=== PATIENT | female | born 1945 | race Caucasian/White ===

== ENCOUNTER 2020-09-18 20:15 | Emergency (ER) | payer MEDICARE, BC ==
--- NOTE | 2020-09-18 21:28 | EDM.PDOC ---
ED HPI GENERAL MEDICAL PROBLEM - General Chief Complaint: Cardiovascular Problem Stated Complaint: RAPID HEART BEAT Time Seen by Provider: 09/18/20 20:38 Source of Information: Reports: Patient History Limitations: Reports: No Limitations - History of Present Illness INITIAL COMMENTS - FREE TEXT/NARRATIVE: Erlinda is a 75-year-old female presenting to the ED for evaluation of acute onset of tachycardia. Patient reports that she ate a hamburger and butter beans for supper and shortly thereafter had acute onset of rapid heartbeat. Her initial pulse was 129. She tried to rest and relax and her pulse still remained above 100. She became lightheaded and slightly dizzy and decided it was time to come in to be evaluated. She does have a history of a partial thyroidectomy due to a goiter and a cervical spine fusion. The patient is currently on metoprolol, Crestor, Metformin, baby aspirin, and a multitude of vitamins. She denied any chest pain, shortness of breath, nausea or vomiting, diaphoresis, or back pain. She does have a history of hip pain secondary to osteoarthritis and did taking 100 mg of ibuprofen this morning. She does have a history of a cervical fusion for chronic neck pain many years ago. She also has a history of bilateral hand and wrist arthritis. On arrival to the ED she was asymptomatic and her pulse was in the 70s. denies pain Pain Score (Numeric/FACES): 0 - Related Data Allergies Allergy/AdvReac Type Severity Reaction Status Date / Time No Known Allergies Allergy Verified 09/18/20 20:57 Home Meds: Home Meds Aspirin [Halfprin] 81 mg PO BEDTIME 12/19/19 [History] Cholecalciferol (Vitamin D3) [Vitamin D3] 2,000 unit PO BID 12/19/19 [History] Metoprolol Succinate 25 mg PO BID 12/19/19 [History] [place]-3S/DHA/Epa/Fish Oil [Fish Oil [place]-3 Softgel] 1 tab PO DAILY 12/19/19 [History] Rosuvastatin [Crestor] 5 mg PO BEDTIME 12/19/19 [History] Ubidecarenone [Co Q-10] 10 mg PO BEDTIME 12/19/19 [History] metFORMIN [Glucophage] 1,000 mg PO BIDMEALS 12/19/19 [History] Past Medical History HEENT History: Reports: Cataract, Impaired Vision, Other (See Below) Other HEENT History: glasses Cardiovascular History: Reports: High Cholesterol, Hypertension Gastrointestinal History: Reports: Chronic Diarrhea 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 Musculoskeletal History: Reports: Arthritis Endocrine/Metabolic History: Reports: Diabetes, Type II - Past Surgical History HEENT Surgical History: Reports: Cataract Surgery GI Surgical History: Reports: Appendectomy, Cholecystectomy Female Surgical History: Reports: Oophorectomy Endocrine Surgical History: Reports: Parathyroidectomy Neurological Surgical History: Reports: Spinal Fusion Musculoskeletal Surgical History: Reports: Hip Replacement, Knee Replacement Social & Family History - Tobacco Use Tobacco Use Status *Q: Never Tobacco User - Caffeine Use Caffeine Use: Reports: Coffee - Recreational Drug Use Recreational Drug Use: No ED ROS GENERAL - Review of Systems Review Of Systems: See Below Constitutional: Reports: No Symptoms HEENT: Reports: No Symptoms Respiratory: Reports: No Symptoms Cardiovascular: Reports: Lightheadedness, Palpitations (Tachycardia) Endocrine: Reports: No Symptoms GI/Abdominal: Reports: No Symptoms : Reports: No Symptoms Musculoskeletal: Reports: Other (Left hip pain) Skin: Reports: No Symptoms Neurological: Reports: No Symptoms Psychiatric: Reports: No Symptoms Hematologic/Lymphatic: Reports: No Symptoms Immunologic: Reports: No Symptoms ED EXAM, GENERAL - Physical Exam Exam: See Below Exam Limited By: No Limitations General Appearance: Alert, No Apparent Distress Eye Exam: Bilateral Eye: EOMI, PERRL Head: Atraumatic, Normocephalic Neck: Normal Inspection, Supple, Non-Tender, Full Range of Motion. No: Carotid Bruit, Lymphadenopathy (R), Lymphadenopathy (L) Respiratory/Chest: No Respiratory Distress, Lungs Clear, Normal Breath Sounds, No Accessory Muscle Use Cardiovascular: Normal Peripheral Pulses, Regular Rate, Rhythm, No Murmur Peripheral Pulses: 2+: Radial (L), Radial (R), Posterior Tibial (L), Posterior Tibial (R) GI/Abdominal: Normal Bowel Sounds, Soft, Non-Tender Back Exam: Normal Inspection Extremities: Normal Inspection, No Pedal Edema Neurological: Alert, Oriented, Normal Cognition, No Motor/Sensory Deficits Psychiatric: Normal Affect, Normal Mood Skin Exam: Warm, Dry, Intact, Normal Color Lymphatic: No Adenopathy #1 Interpretation EKG Date: 09/18/20 Time: 20:43 Rhythm: NSR Rate (Beats/Min): 64 [place]: Normal P-Wave: Present QRS: Normal ST-T: Normal QT: Normal Comparison: NA - No Prior EKG Course - Vital Signs Last Recorded V/S: Last Vital Signs Temp 36.5 C 09/18/20 20:54 Pulse 69 09/18/20 21:32 Resp 16 09/18/20 20:54 BP 137/68 09/18/20 21:32 Pulse Ox 97 09/18/20 21:32 - Orders/Labs/Meds Orders: Active Orders 24 hr Category Date Time Status EKG Documentation Completion [RC] ASDIRECTED Care 09/18/20 20:39 Active EKG 12 Lead [EK] Routine Ther 09/18/20 20:38 Ordered Labs: Laboratory Tests 09/18/20 09/18/20 Range/Units 20:52 20:52 WBC 8.5 (4.5-11.0) K/uL RBC 4.38 (3.30-5.50) M/uL Hgb 13.6 (12.0-15.0) g/dL Hct 40.5 (36.0-48.0) % MCV 93 (80-98) fL MCH 31 (27-31) pg MCHC 34 (32-36) % Plt Count 262 (150-400) K/uL Neut % (Auto) 55.2 (36-66) % Lymph % (Auto) 33.0 (24-44) % Delta % (Auto) 8.5 H (2-6) % Eos % (Auto) 2.9 (2-4) % Baso % (Auto) 0.4 (0-1) % Sodium 140 (140-148) mmol/L Potassium 4.3 (3.6-5.2) mmol/L Chloride 102 (100-108) mmol/L Carbon Dioxide 26 (21-32) mmol/L Anion Gap 12.2 (5.0-14.0) mmol/L BUN 25 H (7-18) mg/dL Creatinine 1.1 H (0.6-1.0) mg/dL Est Cr Clr Drug Dosing 40.09 mL/min Estimated GFR (MDRD) 48 L (>60) Glucose 180 H (74-106) mg/dL Calcium 8.9 (8.5-10.1) mg/dL Magnesium 1.2 L (1.8-2.4) mg/dL Total Bilirubin 0.5 (0.2-1.0) mg/dL AST 12 L (15-37) U/L ALT 30 (12-78) U/L Alkaline Phosphatase 63 (46-116) U/L Troponin I < 0.017 (0.000-0.056) ng/mL Total Protein 6.4 (6.4-8.2) g/dL Albumin 3.6 (3.4-5.0) g/dL Globulin 2.8 (2.3-3.5) g/dL Albumin/Globulin Ratio 1.3 (1.2-2.2) TSH, Ultra Sensitive 3.314 (0.358-3.740) uIU/mL Meds: Medications Discontinued Medications Generic Name Dose Route Start Last Admin Trade Name Guerrero PRN Reason Stop Dose Admin Magnesium Oxide 800 mg 09/18/20 22:29 Magnesium Oxide 400 Mg Tab PO 09/18/20 22:30 ONETIME ONE - Re-Assessments/Exams Free Text/Narrative Re-Assessment/Exam: 09/18/20 22:34 reviewed the patient's EKG showing normal sinus rhythm without evidence for any ischemia or injury. I reviewed her labs showing a normal CBC with a hemoglobin of 13.6, hematocrit of 40.5, leukocyte count of 8.5, and a platelet count of 262,000. Her comprehensive metabolic panel is significant for a BUN of 25 and a creatinine of 1.1. The remainder of the comprehensive was unremarkable. Her magnesium is very low at 1.2 so she was supplemented with mag oxide 800 mg p.o. Her troponin is negative at less than 0.017 and her TSH is normal at 3.314. She has not had any episodes of tachycardia since being here. It is unclear what the etiology is, however, we will discharge her with instructions to return if she has any recurrence. Patient's in agreement with this plan. All questions were answered prior to discharge. Departure - Departure Time of Disposition: 22:36 Disposition: Home, Self-Care 01 Clinical Impression: Paroxysmal tachycardia, unspecified, Hypomagnesemia Instructions: Sinus Tachycardia, Hypomagnesemia Referrals: Leia Cummins MD [Primary Care Provider] - Forms: ED Department Discharge Care Plan Goals: Your work-up today was unremarkable except that you were somewhat dehydrated and you have a very low magnesium level. The magnesium could have been the orchestrate or of the tachycardia. There does not appear to be any other worrisome findings in your work-up. Hopefully the magnesium oxide that we gave you will bring you back up to normal level. Return to the ED should you have another episode of the tachycardia. If this becomes a recurrence we may put you on an event monitor which can record what the tachycardia electrical pattern is to better define it. Follow-up with your primary care provider as needed. Sepsis Event Note (ED) - Evaluation Sepsis Screening Result: No Definite Risk - Focused Exam Vital Signs: Vital Signs Temp Pulse Resp BP Pulse Ox 09/18/20 21:32 69 137/68 97 09/18/20 20:54 36.5 C 71 16 178/75 H 93 L 09/18/20 20:37 36.5 C 71 16 178/75 H 93 L - Problem List & Annotations (1) Hypomagnesemia SNOMED Code(s): 308043001 Code(s): E83.42 - HYPOMAGNESEMIA Status: Acute Priority: Medium Current Visit: Yes (2) Paroxysmal tachycardia, unspecified SNOMED Code(s): 54618738 Code(s): I47.9 - PAROXYSMAL TACHYCARDIA, UNSPECIFIED Status: Acute Priority: High Current Visit: Yes - Problem List Review Problem List Initiated/Reviewed/Updated: Yes - My Orders Last 24 Hours: My Active Orders 09/18/20 20:38 EKG 12 Lead [EK] Routine 09/18/20 20:39 EKG Documentation Completion [RC] ASDIRECTED - Assessment/Plan Last 24 Hours: My Active Orders 09/18/20 20:38 EKG 12 Lead [EK] Routine 09/18/20 20:39 EKG Documentation Completion [RC] ASDIRECTED
[2020-09-18] MEDS ORDERED: Magnesium Oxide 400 MG Tab PO ONE (22:29)
== END 2020-09-18 22:58 | disposition home or self-care (01) ==
LOC: JP.ED 20:15
DX: R00.0 Tachycardia, unspecified (principal); E83.42 Hypomagnesemia; E11.9 Type 2 diabetes mellitus without complications; E78.00 Pure hypercholesterolemia, unspecified; I10 Essential (primary) hypertension; Z79.82 Long term (current) use of aspirin; Z79.899 Other long term (current) drug therapy; Z79.84 Long term (current) use of oral hypoglycemic drugs
CPT/HCPCS: 36415; 80053; 83735; 84443; 84484; 85025; 93005; 93010; 99283; 99285-25; A9270-GY

== ENCOUNTER 2021-02-11 07:34 | Emergency (ER) | payer MEDICARE, BC ==
--- NOTE | 2021-02-11 09:51 | EDM.PDOC ---
ED HPI GENERAL MEDICAL PROBLEM - General Chief Complaint: Cardiovascular Problem Stated Complaint: SOB Time Seen by Provider: 02/11/21 09:50 Source of Information: Reports: Patient History Limitations: Reports: No Limitations - History of Present Illness INITIAL COMMENTS - FREE TEXT/NARRATIVE: pt arrived stating that she was awaken in the misddle of the nite feeling very sob and like her heart was racing. Onset: Today, Sudden Duration: Hour(s): Location: Reports: Chest, Generalized Associated Symptoms: Reports: Shortness of Breath, Weakness - Related Data Allergies Allergy/AdvReac Type Severity Reaction Status Date / Time No Known Allergies Allergy Verified 02/13/21 08:51 Home Meds: Home Meds Aspirin [Halfprin] 81 mg PO BEDTIME 12/19/19 [History] Cholecalciferol (Vitamin D3) [Vitamin D3] 2,000 unit PO BID 12/19/19 [History] [place]-3S/DHA/Epa/Fish Oil [Fish Oil [place]-3 Softgel] 1 tab PO DAILY 12/19/19 [History] Rosuvastatin [Crestor] 5 mg PO BEDTIME 12/19/19 [History] Ubidecarenone [Co Q-10] 10 mg PO BEDTIME 12/19/19 [History] metFORMIN [Glucophage] 1,000 mg PO BIDMEALS 12/19/19 [History] Magnesium 400 mg PO BID 02/11/21 [History] Potassium Gluconate [Potassium] 2 tab PO DAILY 02/11/21 [History] carvediloL [Carvedilol] 6.25 mg PO BID 02/11/21 [History] Past Medical History HEENT History: Reports: Cataract, Impaired Vision, Other (See Below) Other HEENT History: glasses Cardiovascular History: Reports: High Cholesterol, Hypertension Gastrointestinal History: Reports: Chronic Diarrhea 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 Musculoskeletal History: Reports: Arthritis Endocrine/Metabolic History: Reports: Diabetes, Type II - Infectious Disease History Infectious Disease History: Reports: Chicken Pox, Measles, Mumps, Shingles - Past Surgical History HEENT Surgical History: Reports: Cataract Surgery GI Surgical History: Reports: Appendectomy, Cholecystectomy Female Surgical History: Reports: Oophorectomy Endocrine Surgical History: Reports: Parathyroidectomy Musculoskeletal Surgical History: Reports: Hip Replacement, Knee Replacement Social & Family History - Tobacco Use Tobacco Use Status *Q: Never Tobacco User - Caffeine Use Caffeine Use: Reports: None - Recreational Drug Use Recreational Drug Use: No ED ROS GENERAL - Review of Systems Review Of Systems: See Below Constitutional: Reports: Weakness, Other (sensation of a rapid heartbeat and feeling very sob. ) HEENT: Reports: No Symptoms Respiratory: Reports: Shortness of Breath Cardiovascular: Reports: Palpitations Endocrine: Reports: No Symptoms GI/Abdominal: Reports: No Symptoms : Reports: No Symptoms Musculoskeletal: Reports: No Symptoms Skin: Reports: No Symptoms Neurological: Reports: No Symptoms Psychiatric: Reports: Anxiety ED EXAM, GENERAL - Physical Exam Exam: See Below Free Text/Narrative:: pt arrived feeling sob. She had difficulty resting last nite because of the sob. She has not had chest pain. She is scheduled for a chemical cardiac stress test for tuesday. She did have the sensation of palpitations last nite. Exam Limited By: No Limitations General Appearance: Alert, No Apparent Distress, Anxious, Other (pt has o2 sats in the 95 range. She has not had a fever. ) Ears: Normal TMs Nose: Normal Inspection Throat/Mouth: Normal Inspection Head: Atraumatic Neck: Normal Inspection Respiratory/Chest: No Respiratory Distress, Other ( she has the sensation of sob but she has sats in the 95 range. ) Cardiovascular: Regular Rate, Rhythm GI/Abdominal: Soft, Non-Tender (Female) Exam: Deferred Rectal (Female) Exam: Deferred Back Exam: Normal Inspection Extremities: Other ( She does have slight edema but this is not different than usual. ) Course - Vital Signs Last Recorded V/S: Last Vital Signs Temp 36.6 C 02/11/21 08:52 Pulse 72 02/11/21 10:03 Resp 17 02/11/21 10:03 BP 169/80 H 02/11/21 10:03 Pulse Ox 95 02/11/21 10:03 - Orders/Labs/Meds Labs: Laboratory Tests 02/11/21 02/11/21 02/11/21 Range/Units 09:44 09:44 10:22 WBC 7.9 (4.5-11.0) K/uL RBC 4.43 (3.30-5.50) M/uL Hgb 13.3 (12.0-15.0) g/dL Hct 39.5 (36.0-48.0) % MCV 89 (80-98) fL MCH 30 (27-31) pg MCHC 34 (32-36) % Plt Count 308 (150-400) K/uL Neut % (Auto) 64.0 (36-66) % Lymph % (Auto) 26.2 (24-44) % [place] % (Auto) 7.0 H (2-6) % Eos % (Auto) 2.4 (2-4) % Baso % (Auto) 0.4 (0-1) % D-Dimer, Quantitative (0.0-500.0) ng/mL Sodium 143 (140-148) mmol/L Potassium 4.3 (3.6-5.2) mmol/L Chloride 107 (100-108) mmol/L Carbon Dioxide 27 (21-32) mmol/L Anion Gap 9.3 (5.0-14.0) mmol/L BUN 17 (7-18) mg/dL Creatinine 0.9 (0.6-1.0) mg/dL Est Cr Clr Drug Dosing TNP Estimated GFR (MDRD) > 60 (>60) Glucose 144 H (74-106) mg/dL Calcium 8.9 (8.5-10.1) mg/dL Magnesium (1.8-2.4) mg/dL Total Bilirubin 0.6 (0.2-1.0) mg/dL AST 15 (15-37) U/L ALT 24 (12-78) U/L Alkaline Phosphatase 63 (46-116) U/L Troponin I < 0.017 (0.000-0.056) ng/mL NT-Pro-B Natriuret Pep (5-450) pg/mL Total Protein 6.7 (6.4-8.2) g/dL Albumin 3.8 (3.4-5.0) g/dL Globulin 2.9 (2.3-3.5) g/dL Albumin/Globulin Ratio 1.3 (1.2-2.2) TSH, Ultra Sensitive (0.358-3.740) uIU/mL 02/11/21 02/11/21 02/11/21 Range/Units 10:22 10:22 10:22 WBC (4.5-11.0) K/uL RBC (3.30-5.50) M/uL Hgb (12.0-15.0) g/dL Hct (36.0-48.0) % MCV (80-98) fL MCH (27-31) pg MCHC (32-36) % Plt Count (150-400) K/uL Neut % (Auto) (36-66) % Lymph % (Auto) (24-44) % [place] % (Auto) (2-6) % Eos % (Auto) (2-4) % Baso % (Auto) (0-1) % D-Dimer, Quantitative 564.66 H (0.0-500.0) ng/mL Sodium (140-148) mmol/L Potassium (3.6-5.2) mmol/L Chloride (100-108) mmol/L Carbon Dioxide (21-32) mmol/L Anion Gap (5.0-14.0) mmol/L BUN (7-18) mg/dL Creatinine (0.6-1.0) mg/dL Est Cr Clr Drug Dosing Estimated GFR (MDRD) (>60) Glucose (74-106) mg/dL Calcium (8.5-10.1) mg/dL Magnesium (1.8-2.4) mg/dL Total Bilirubin (0.2-1.0) mg/dL AST (15-37) U/L ALT (12-78) U/L Alkaline Phosphatase (46-116) U/L Troponin I (0.000-0.056) ng/mL NT-Pro-B Natriuret Pep 113 (5-450) pg/mL Total Protein (6.4-8.2) g/dL Albumin (3.4-5.0) g/dL Globulin (2.3-3.5) g/dL Albumin/Globulin Ratio (1.2-2.2) TSH, Ultra Sensitive 0.917 (0.358-3.740) uIU/mL 02/11/21 Range/Units 11:08 WBC (4.5-11.0) K/uL RBC (3.30-5.50) M/uL Hgb (12.0-15.0) g/dL Hct (36.0-48.0) % MCV (80-98) fL MCH (27-31) pg MCHC (32-36) % Plt Count (150-400) K/uL Neut % (Auto) (36-66) % Lymph % (Auto) (24-44) % [place] % (Auto) (2-6) % Eos % (Auto) (2-4) % Baso % (Auto) (0-1) % D-Dimer, Quantitative (0.0-500.0) ng/mL Sodium (140-148) mmol/L Potassium (3.6-5.2) mmol/L Chloride (100-108) mmol/L Carbon Dioxide (21-32) mmol/L Anion Gap (5.0-14.0) mmol/L BUN (7-18) mg/dL Creatinine (0.6-1.0) mg/dL Est Cr Clr Drug Dosing Estimated GFR (MDRD) (>60) Glucose (74-106) mg/dL Calcium (8.5-10.1) mg/dL Magnesium 1.7 L (1.8-2.4) mg/dL Total Bilirubin (0.2-1.0) mg/dL AST (15-37) U/L ALT (12-78) U/L Alkaline Phosphatase (46-116) U/L Troponin I (0.000-0.056) ng/mL NT-Pro-B Natriuret Pep (5-450) pg/mL Total Protein (6.4-8.2) g/dL Albumin (3.4-5.0) g/dL Globulin (2.3-3.5) g/dL Albumin/Globulin Ratio (1.2-2.2) TSH, Ultra Sensitive (0.358-3.740) uIU/mL - Re-Assessments/Exams Free Text/Narrative Re-Assessment/Exam: 02/11/21 11:21 tsh is normal, her other labs look good. Her trop is good. Her rhythm remains notmal Her chest xray shows chronic changes but no infiltrate of effusions. her ddimer is not sig. Departure - Departure Time of Disposition: 11:23 Disposition: Home, Self-Care 01 Condition: Fair Clinical Impression: SOB (shortness of breath) on exertion Instructions: Shortness of Breath, Adult, [id number] Referrals: John Jara PA-C [Primary Care Provider] - Forms: ED Department Discharge Care Plan Goals: tske a extra Mag 400mg tablet daily for the next 3 days. keep appt for Tuesday for the stress test, keep appt with john ju for Tuesday, rtc if symoomtoms should get worse. Sepsis Event Note (ED) - Evaluation Sepsis Screening Result: No Definite Risk
--- NOTE | 2021-02-11 11:04 | CRLCR ---
For Patients: As a result of the Century Cures Act, medical imaging exams and procedure reports are released immediately into your electronic medical record. You may view this report before your referring provider. If you have questions, please contact your health care provider. Indication: Shortness of breath palpitations Comparison: None available. Technique: PA and Lateral views chest Findings: There is hyperinflation and chronic interstitial change with minimal basilar atelectasis versus scar. There is no dense consolidation, effusion or pneumothorax. The cardiac silhouette is mildly prominent. The bony thorax is grossly intact. Impression: Hyperinflation and chronic interstitial change with basilar atelectasis versus scar. No dense consolidation. Dictated by Caden Lewis MD @ 02/11/2021 11:04:03 AM (Electronically Signed)
== END 2021-02-11 11:37 | disposition home or self-care (01) ==
LOC: JP.ED 07:34
DX: R06.02 Shortness of breath (principal); E78.00 Pure hypercholesterolemia, unspecified; I10 Essential (primary) hypertension; M19.90 Unspecified osteoarthritis, unspecified site; E11.9 Type 2 diabetes mellitus without complications; Z79.82 Long term (current) use of aspirin; Z79.84 Long term (current) use of oral hypoglycemic drugs; Z79.899 Other long term (current) drug therapy
CPT/HCPCS: 36415; 71046; 80053; 83735; 83880; 84443; 84484; 85025; 85379; 93005; 99285-25

== ENCOUNTER 2021-04-06 10:27 | Emergency (ER) | payer MEDICARE, BC ==
--- NOTE | 2021-04-06 11:17 | EDM.PDOC ---
ED HPI GENERAL MEDICAL PROBLEM - General Chief Complaint: Chest Pain Stated Complaint: SOB, HEART PALPITATIONS Time Seen by Provider: 04/06/21 10:48 Source of Information: Reports: Patient, Family History Limitations: Reports: No Limitations - History of Present Illness INITIAL COMMENTS - FREE TEXT/NARRATIVE: 76-year-old female with ongoing palpitations over the past several months, intermittent shortness of breath and chest pain that seems to have been under lying element of anxiety. In reviewing her records, she had a nuclear stress test just 2 months ago that was negative, EKGs have been normal, vitals have been normal. She had a Holter monitor that ended Tuesday of last week and she has not heard the results which she is very anxious about, she called the clinic this morning and has not heard back. She felt short of breath this morning so came in. She has intermittent pressure as well. She was placed on cardiac monitoring and shows a normal sinus rhythm of her rate 64, no ectopic beats, O2 sats 98 to 100% and blood pressure is fine. Duration: Chronic (Symptoms have been ongoing and chronic) Associated Symptoms: Reports: Chest Pain (Intermittent pressure and palpitations), Malaise, Shortness of Breath - Related Data Allergies Allergy/AdvReac Type Severity Reaction Status Date / Time No Known Allergies Allergy Verified 04/06/21 10:48 Home Meds: Home Meds Aspirin [Halfprin] 81 mg PO BEDTIME 12/19/19 [History] Cholecalciferol (Vitamin D3) [Vitamin D3] 2,000 unit PO BID 12/19/19 [History] [place]-3S/DHA/Epa/Fish Oil [Fish Oil [place]-3 Softgel] 1 tab PO DAILY 12/19/19 [History] Rosuvastatin [Crestor] 5 mg PO BEDTIME 12/19/19 [History] Ubidecarenone [Co Q-10] 10 mg PO BEDTIME 12/19/19 [History] metFORMIN [Glucophage] 1,000 mg PO BIDMEALS 12/19/19 [History] Magnesium 400 mg PO BID 02/11/21 [History] Potassium Gluconate [Potassium] 2 tab PO DAILY 02/11/21 [History] carvediloL [Carvedilol] 6.25 mg PO BID 02/11/21 [History] Past Medical History HEENT History: Reports: Cataract, Impaired Vision, Other (See Below) Other HEENT History: glasses Cardiovascular History: Reports: High Cholesterol, Hypertension Gastrointestinal History: Reports: Chronic Diarrhea [employer] History: Reports: Endometriosis Musculoskeletal History: Reports: Arthritis Endocrine/Metabolic History: Reports: Diabetes, Type II - Infectious Disease History Infectious Disease History: Reports: Chicken Pox, Measles, Mumps, Shingles - Past Surgical History HEENT Surgical History: Reports: Cataract Surgery GI Surgical History: Reports: Appendectomy, Cholecystectomy Female Surgical History: Reports: Oophorectomy Endocrine Surgical History: Reports: Parathyroidectomy Neurological Surgical History: Reports: Spinal Fusion Musculoskeletal Surgical History: Reports: Hip Replacement, Knee Replacement Social & Family History - Tobacco Use Tobacco Use Status *Q: Never Tobacco User Second Hand Smoke Exposure: No - Caffeine Use Caffeine Use: Reports: None - Recreational Drug Use Recreational Drug Use: No ED ROS GENERAL - Review of Systems Review Of Systems: See Below Constitutional: Denies: Fever, Chills HEENT: Denies: Throat Pain Respiratory: Reports: Shortness of Breath. Denies: Wheezing, Cough Cardiovascular: Reports: Chest Pain, Palpitations GI/Abdominal: Reports: No Symptoms Skin: Reports: No Symptoms Neurological: Reports: No Symptoms Psychiatric: Reports: Anxiety ED EXAM, GENERAL - Physical Exam Exam: See Below Exam Limited By: No Limitations General Appearance: Alert, No Apparent Distress, Anxious Eye Exam: Bilateral Eye: Normal Inspection Head: Atraumatic Respiratory/Chest: No Respiratory Distress, Lungs Clear Cardiovascular: Regular Rate, Rhythm. No: Extra Beats GI/Abdominal: Soft, Non-Tender Extremities: Normal Inspection. No: Pedal Edema Neurological: Alert, Oriented, No Motor/Sensory Deficits Psychiatric: Anxious Skin Exam: Warm, Dry #1 Interpretation EKG Date: 04/06/21 Rhythm: NSR Course - Vital Signs Last Recorded V/S: Last Vital Signs Temp 97.2 F 04/06/21 10:51 Pulse 66 04/06/21 10:51 Resp 20 04/06/21 10:51 BP 148/59 H 04/06/21 10:51 Pulse Ox 99 04/06/21 10:51 - Orders/Labs/Meds Orders: Active Orders 24 hr Category Date Time Status EKG 12 Lead [EK] Routine Ther 04/06/21 11:11 Ordered Labs: Laboratory Tests 04/06/21 04/06/21 Range/Units 11:22 11:22 WBC 6.3 (3.2-11.0) K/uL RBC 4.41 (3.77-5.24) M/uL Hgb 13.3 (11.2-15.5) Hct 39.5 (34.3-46.0) % MCV 89.6 (81.4-99.0) fL MCH 30.2 L (31.6-35.5) pg MCHC 33.7 (31.6-35.5) g/dL Plt Count 281 (130-375) K/uL Immature Gran % (Auto) 0.2 (0.0-0.7) % Neut % (Auto) 54.7 (40.0-78.1) % Lymph % (Auto) 30.9 (11.4-47.7) % [place] % (Auto) 8.0 (3.3-12.6) % Eos % (Auto) 5.4 (0.0-5.4) % Baso % (Auto) 0.8 (0.1-1.3) % Neut # (Auto) 3.44 (1.0-7.6) K/uL Lymph # (Auto) 1.94 (0.8-3.3) K/uL [place] # (Auto) 0.50 (0.20-0.90) K/uL Eos # (Auto) 0.34 (0.00-0.40) K/uL Baso # (Auto) 0.05 (0.00-0.10) K/uL Immature Gran # (Auto) 0.01 (0.00-0.23) K/uL Sodium 141 (140-148) mmol/L Potassium 4.5 (3.6-5.2) mmol/L Chloride 103 (100-108) mmol/L Carbon Dioxide 29 (21-32) mmol/L Anion Gap 8.8 (5.0-14.0) mmol/L BUN 15 (7-18) mg/dL Creatinine 0.9 (0.6-1.0) mg/dL Est Cr Clr Drug Dosing TNP Estimated GFR (MDRD) > 60 (>60) Glucose 154 H (74-106) mg/dL Calcium 9.3 (8.5-10.1) mg/dL Troponin I High Sens 6.6 (<=60.3) pg/mL - Re-Assessments/Exams Free Text/Narrative Re-Assessment/Exam: 04/06/21 11:17 EKG on arrival shows normal sinus rhythm. CBC BMP and troponin were obtained. 04/06/21 12:06 CBC and BMP were normal other than glucose at 154 however this is not a fasting glucose. Troponin was normal. Patient did start having some PVCs after she calmed down but they were asymptomatic. No further work-up needed at this time, she can follow-up with her primary provider to discuss her Holter monitor, possibly getting something to decrease PVCs and may be even a treatment for chronic anxiety. Departure - Departure Time of Disposition: 12:25 Disposition: Home, Self-Care 01 Clinical Impression: Palpitations, PVCs (premature ventricular contractions) - Discharge Information Instructions: Premature Ventricular Contraction Referrals: Elsa Jara PA-C [Primary Care Provider] - Forms: ED Department Discharge Care Plan Goals: Continue your current medications, see Elsa Jara at the soonest opportunity to discuss your Holter monitor results, and any further treatment that may be helpful for your palpitations and shortness of breath. Sepsis Event Note (ED) - Evaluation Sepsis Screening Result: No Definite Risk - Focused Exam Vital Signs: Vital Signs Temp Pulse Resp BP Pulse Ox 04/06/21 10:51 97.2 F 66 20 148/59 H 99 - My Orders Last 24 Hours: My Active Orders 04/06/21 11:11 EKG 12 Lead [EK] Routine - Assessment/Plan Last 24 Hours: My Active Orders 04/06/21 11:11 EKG 12 Lead [EK] Routine
== END 2021-04-06 12:25 | disposition home or self-care (01) ==
LOC: JP.ED 10:27
DX: I49.3 Ventricular premature depolarization (principal); E11.9 Type 2 diabetes mellitus without complications; E78.00 Pure hypercholesterolemia, unspecified; I10 Essential (primary) hypertension; Z79.84 Long term (current) use of oral hypoglycemic drugs; Z79.82 Long term (current) use of aspirin
CPT/HCPCS: 36415; 80048; 84484; 85025; 93010; 99284; 99285-25

== ENCOUNTER 2021-07-13 10:17 | Emergency (ER) | payer MEDICARE, BC ==
[2021-07-13] MEDS ORDERED: Furosemide 40 MG/4 ML VIAL IM ONE (12:21)
== END 2021-07-13 12:53 | disposition home or self-care (01) ==
LOC: JP.ED 10:17
DX: R60.0 Localized edema (principal); E78.00 Pure hypercholesterolemia, unspecified; I10 Essential (primary) hypertension; E11.9 Type 2 diabetes mellitus without complications; M19.90 Unspecified osteoarthritis, unspecified site; Z90.49 Acquired absence of other specified parts of digestive tract; Z47.32 Aftercare following explantation of hip joint prosthesis; Z79.82 Long term (current) use of aspirin; Z79.899 Other long term (current) drug therapy; Z79.84 Long term (current) use of oral hypoglycemic drugs
CPT/HCPCS: 36415; 71045; 71045-26; 80053; 83880; 85025; 93970; 93970-26; 96372; 99282; 99284-25; J1940

== ENCOUNTER 2022-07-30 08:49 | Emergency (ER) | payer MEDICARE, BC ==
[2022-07-30 10:18] LABS: BASOPHILS ABSOLUTE AUTO 0.04 K/uL (0.00-0.10); BASOPHILS PERCENT AUTO 0.6 % (0.1-1.3); EOSINOPHILS ABSOLUTE AUTO 0.18 K/uL (0.00-0.40); EOSINOPHILS PERCENT AUTO 2.8 % (0.0-5.4); HEMATOCRIT 39.3 % (34.3-46.0); HEMOGLOBIN 13.2 g/dL (11.2-15.5); IMMATURE GRAN PERCENT AUTO 0.2 % (0.0-0.7); LYMPHOCYTES ABSOLUTE AUTO 1.72 K/uL (0.8-3.3); MEAN CORPUSCULAR HEMOGLOBIN 31.7 pg (31.6-35.5); MEAN CORPUSCULAR HGB CONC 33.6 g/dL (31.6-35.5); MEAN CORPUSCULAR VOLUME 94.2 fL (81.4-99.0); MONOCYTES ABSOLUTE AUTO 0.39 K/uL (0.20-0.90); MONOCYTES PERCENT AUTO 6.1 % (3.3-12.6); NEUTROPHILS ABSOLUTE AUTO 4.03 K/uL (1.0-7.6); NEUTROPHILS PERCENT AUTO 63.3 % (40.0-78.1); PLATELET COUNT,PLT 244 K/uL (130-375); RED BLOOD CELL COUNT 4.17 M/uL (3.77-5.24); WHITE BLOOD CELL COUNT,WBC 6.4 K/uL (3.2-11.0)
[2022-07-30 10:22] LABS: IMMATURE GRAN ABSOLUTE AUTO 0.01 K/uL (0.00-0.23)
[2022-07-30 10:41] LABS: CALCIUM 9.2 mg/dL (8.5-10.1); EST CRCL DRUG DOSING (CG) 42.7 mL/min; POTASSIUM,K 3.9 mmol/L (3.6-5.2); TROPONIN I HIGH SENSITIVITY 6.5 pg/mL (<=60.3)
[2022-07-30 10:42] LABS: ANION GAP 11.9 mmol/L (5.0-14.0)
== END 2022-07-30 11:33 | disposition home or self-care (01) ==
LOC: JP.ED 08:49
DX: R00.2 Palpitations (principal); E11.9 Type 2 diabetes mellitus without complications; E78.00 Pure hypercholesterolemia, unspecified; I10 Essential (primary) hypertension; Z79.82 Long term (current) use of aspirin; Z79.84 Long term (current) use of oral hypoglycemic drugs; Z79.899 Other long term (current) drug therapy
CPT/HCPCS: 36415; 80048; 84484; 85025; 99283; 99284

== ENCOUNTER 2022-10-09 08:08 | Emergency (ER) | payer MEDICARE, BC ==
[2022-10-09] MEDS ORDERED: Ondansetron 4 MG Tab.DIS PO PRN (08:57)
[2022-10-09 09:04] LABS: HEMATOCRIT 42.1 % (34.3-46.0); HEMOGLOBIN 14.6 g/dL (11.2-15.5); MEAN CORPUSCULAR HEMOGLOBIN 30.9 pg (31.6-35.5); MEAN CORPUSCULAR HGB CONC 34.7 g/dL (31.6-35.5); MEAN CORPUSCULAR VOLUME 89.2 fL (81.4-99.0); RED BLOOD CELL COUNT 4.72 M/uL (3.77-5.24); WHITE BLOOD CELL COUNT,WBC 3.5 K/uL (3.2-11.0)
[2022-10-09 09:24] LABS: A/G RATIO 1.1 (1.2-2.2); ALANINE AMINOTRANSFERASE,ALT 523 U/L (12-78); ALBUMIN 3.5 g/dL (3.4-5.0); ALKALINE PHOSPHATASE 92 U/L (46-116); ASPARTATE AMNIOTRANSFERASE,AST 628 U/L (15-37); BILIRUBIN TOTAL 0.6 mg/dL (0.2-1.0); BLOOD UREA NITROGEN,BUN 21 mg/dL (7-18); CALCIUM 8.9 mg/dL (8.5-10.1); CARBON DIOXIDE,CO2 22 mmol/L (21-32); CHLORIDE,CL 100 mmol/L (100-108); CREATININE 1.1 mg/dL (0.6-1.0); EST CRCL DRUG DOSING (CG) 37.32 mL/min; ESTIMATED GFR 51 mL/min (>60); GLUCOSE RANDOM 177 mg/dL (74-106); MAGNESIUM 1.5 mg/dL (1.8-2.4); POTASSIUM,K 3.9 mmol/L (3.6-5.2); PROTEIN TOTAL,TP 6.8 g/dL (6.4-8.2); SODIUM,NA 133 mmol/L (140-148)
[2022-10-09 09:25] LABS: ANION GAP 14.9 mmol/L (5.0-14.0)
[2022-10-09] MEDS ORDERED: Sodium Chloride 0.9% 10 ML Syringe FLUSH ONE (13:12)
[2022-10-09] MEDS ORDERED: Sodium Chloride 0.9% 50 ML IV SCH (13:15)
[2022-10-09] MEDS ORDERED: Iopamidol 612 MG/ML 100 ML Bottle IV SCH (13:15)
== END 2022-10-09 14:49 | disposition home or self-care (01) ==
LOC: JP.ED 08:08
DX: A08.4 Viral intestinal infection, unspecified (principal); R74.01 Elevation of levels of liver transaminase levels
CPT/HCPCS: 36415; 74177; 76705; 80053; 83690; 83735; 85027; 99284; J3490; Q0162; Q9967; U0002

== ENCOUNTER 2023-05-10 08:57 | Emergency (ER) | payer MEDICARE, BC ==
[2023-05-10 09:35] LABS: BASOPHILS ABSOLUTE AUTO 0.04 K/uL (0.00-0.10); BASOPHILS PERCENT AUTO 0.6 % (0.1-1.3); EOSINOPHILS ABSOLUTE AUTO 0.23 K/uL (0.00-0.40); EOSINOPHILS PERCENT AUTO 3.5 % (0.0-5.4); HEMATOCRIT 38.8 % (34.3-46.0); HEMOGLOBIN 13.3 g/dL (11.2-15.5); IMMATURE GRAN PERCENT AUTO 0.3 % (0.0-0.7); LYMPHOCYTES ABSOLUTE AUTO 1.76 K/uL (0.8-3.3); LYMPHOCYTES PERCENT AUTO 26.7 % (11.4-47.7); MEAN CORPUSCULAR HEMOGLOBIN 31.1 pg (31.6-35.5); MEAN CORPUSCULAR HGB CONC 34.3 g/dL (31.6-35.5); MEAN CORPUSCULAR VOLUME 90.7 fL (81.4-99.0); MONOCYTES ABSOLUTE AUTO 0.42 K/uL (0.20-0.90); MONOCYTES PERCENT AUTO 6.4 % (3.3-12.6); NEUTROPHILS ABSOLUTE AUTO 4.12 K/uL (1.0-7.6); NEUTROPHILS PERCENT AUTO 62.5 % (40.0-78.1); PLATELET COUNT,PLT 255 K/uL (130-375); RED BLOOD CELL COUNT 4.28 M/uL (3.77-5.24); WHITE BLOOD CELL COUNT,WBC 6.6 K/uL (3.2-11.0)
[2023-05-10 09:36] LABS: BASE EXCESS VENOUS 1.2 mm/L; BICARBONATE,VENOUS 25.5 mmol/L; CARBOXYHEMOGLOBIN 2.5 % (0.0-1.6); METHEMOGLOBIN 0.9 %; O2 SATURATION VENOUS 85.9; PCO2 VENOUS 41.2 mm/Hg; PH,VENOUS 7.408 (7.350-7.450); PO2 VENOUS 52.5 mm/Hg; TOTAL HEMOGLOBIN 13.8 g/dL (12.0-16.0)
[2023-05-10 09:37] LABS: IMMATURE GRAN ABSOLUTE AUTO 0.02 K/uL (0.00-0.23)
[2023-05-10 10:09] LABS: ALANINE AMINOTRANSFERASE,ALT 39 U/L (12-78); ALBUMIN 3.4 g/dL (3.4-5.0); ALKALINE PHOSPHATASE 58 U/L (46-116); ASPARTATE AMNIOTRANSFERASE,AST 29 U/L (15-37); BILIRUBIN TOTAL 0.7 mg/dL (0.2-1.0); BLOOD UREA NITROGEN,BUN 16 mg/dL (7-18); CALCIUM 8.3 mg/dL (8.5-10.1); CARBON DIOXIDE,CO2 26 mmol/L (21-32); CHLORIDE,CL 100 mmol/L (100-108); EST CRCL DRUG DOSING (CG) 40.38 mL/min; ESTIMATED GFR 57 mL/min (>60); GLUCOSE RANDOM 185 mg/dL (74-106); POTASSIUM,K 4.3 mmol/L (3.6-5.2); PRO B-TYPE NATRIUR PEPT,BNPPRO 178 pg/mL (5-450); PROTEIN TOTAL,TP 6.7 g/dL (6.4-8.2); SODIUM,NA 136 mmol/L (140-148)
[2023-05-10 10:10] LABS: ANION GAP 14.3 mmol/L (5.0-14.0)
[2023-05-10 10:11] LABS: MAGNESIUM 1.6 mg/dL (1.8-2.4); TSH ULTRASENSITIVE 1.316 uIU/mL (0.358-3.740)
[2023-05-10 10:31] LABS: CORONAVIRUS COVID-19 NAA NEGATIVE (NEGATIVE); INFLUENZA A NAA NEGATIVE (NEGATIVE); INFLUENZA B NAA NEGATIVE (NEGATIVE); RESPIRATORY SYNCYTIAL VIR NAA NEGATIVE (NEGATIVE)
== END 2023-05-10 11:20 | disposition home or self-care (01) ==
LOC: JP.ED 08:57
DX: R07.9 Chest pain, unspecified (principal); I10 Essential (primary) hypertension; E78.00 Pure hypercholesterolemia, unspecified; E11.9 Type 2 diabetes mellitus without complications; R06.02 Shortness of breath; Z79.82 Long term (current) use of aspirin; Z79.84 Long term (current) use of oral hypoglycemic drugs; Z79.899 Other long term (current) drug therapy; Z90.49 Acquired absence of other specified parts of digestive tract
CPT/HCPCS: 0241U; 36415; 71045; 71045-26; 80053; 82803; 83605; 83735; 83880; 84443; 84484; 85025; 85379; 85610; 93005; 93010; 99284; 99285

== ENCOUNTER 2023-07-26 17:43 | Emergency (ER) | payer MEDICARE, BC ==
[2023-07-26 19:02] LABS: BASOPHILS ABSOLUTE AUTO 0.05 K/uL (0.00-0.10); BASOPHILS PERCENT AUTO 0.6 % (0.1-1.3); EOSINOPHILS ABSOLUTE AUTO 0.34 K/uL (0.00-0.40); EOSINOPHILS PERCENT AUTO 4.3 % (0.0-5.4); HEMATOCRIT 37.3 % (34.3-46.0); IMMATURE GRAN PERCENT AUTO 0.3 % (0.0-0.7); LYMPHOCYTES ABSOLUTE AUTO 2.22 K/uL (0.8-3.3); MEAN CORPUSCULAR HEMOGLOBIN 31.5 pg (31.6-35.5); MEAN CORPUSCULAR HGB CONC 34.9 g/dL (31.6-35.5); MEAN CORPUSCULAR VOLUME 90.3 fL (81.4-99.0); MONOCYTES ABSOLUTE AUTO 0.67 K/uL (0.20-0.90); MONOCYTES PERCENT AUTO 8.4 % (3.3-12.6); NEUTROPHILS ABSOLUTE AUTO 4.64 K/uL (1.0-7.6); NEUTROPHILS PERCENT AUTO 58.4 % (40.0-78.1); PLATELET COUNT,PLT 255 K/uL (130-375); RED BLOOD CELL COUNT 4.13 M/uL (3.77-5.24); WHITE BLOOD CELL COUNT,WBC 7.9 K/uL (3.2-11.0)
[2023-07-26 19:03] LABS: IMMATURE GRAN ABSOLUTE AUTO 0.02 K/uL (0.00-0.23)
[2023-07-26 19:25] LABS: A/G RATIO 1.1 (1.2-2.2); ALANINE AMINOTRANSFERASE,ALT 52 U/L (12-78); ALBUMIN 3.5 g/dL (3.4-5.0); ALKALINE PHOSPHATASE 77 U/L (46-116); ANION GAP 11.4 mmol/L (5.0-14.0); ASPARTATE AMNIOTRANSFERASE,AST 63 U/L (15-37); BILIRUBIN TOTAL 0.5 mg/dL (0.2-1.0); BLOOD UREA NITROGEN,BUN 27 mg/dL (7-18); CALCIUM 9.7 mg/dL (8.5-10.1); CARBON DIOXIDE,CO2 28 mmol/L (21-32); CHLORIDE,CL 104 mmol/L (100-108); CREATININE 1.1 mg/dL (0.6-1.0); EST CRCL DRUG DOSING (CG) 35.22 mL/min; ESTIMATED GFR 51 mL/min (>60); GLUCOSE RANDOM 139 mg/dL (74-106); POTASSIUM,K 4.4 mmol/L (3.6-5.2); PROTEIN TOTAL,TP 6.8 g/dL (6.4-8.2); SODIUM,NA 139 mmol/L (140-148); TROPONIN I HIGH SENSITIVITY 6.1 pg/mL (<=60.3)
[2023-07-26] MEDS: Aspirin 81 MG Tab.Chew PO ONE (19:47)
[2023-07-26] MEDS: Ondansetron 4 MG Tab.DIS PO ONE (19:47)
== END 2023-07-26 20:19 | disposition home or self-care (01) ==
LOC: JP.ED 17:43
DX: R07.9 Chest pain, unspecified (principal); E78.00 Pure hypercholesterolemia, unspecified; I10 Essential (primary) hypertension; E11.9 Type 2 diabetes mellitus without complications; I25.10 Atherosclerotic heart disease of native coronary artery without angina pectoris; Z79.82 Long term (current) use of aspirin; Z79.899 Other long term (current) drug therapy; Z79.84 Long term (current) use of oral hypoglycemic drugs; Z86.19 Personal history of other infectious and parasitic diseases; Z90.49 Acquired absence of other specified parts of digestive tract
CPT/HCPCS: 36415; 71045; 80053; 83605; 84484; 85025; 93005; 99285; A9270; Q0162; 93010; 99283

== ENCOUNTER 2025-02-11 16:09 | Emergency (ER) | payer MEDICARE, BC ==
[2025-02-11 17:14] LABS: BASOPHILS ABSOLUTE AUTO 0.06 K/uL (0.00-0.10); BASOPHILS PERCENT AUTO 1.0 % (0.1-1.3); EOSINOPHILS ABSOLUTE AUTO 0.23 K/uL (0.00-0.40); EOSINOPHILS PERCENT AUTO 3.8 % (0.0-5.4); IMMATURE GRAN PERCENT AUTO 0.2 % (0.0-0.7); LYMPHOCYTES ABSOLUTE AUTO 2.97 K/uL (0.8-3.3); LYMPHOCYTES PERCENT AUTO 48.8 % (11.4-47.7); MONOCYTES ABSOLUTE AUTO 0.66 K/uL (0.20-0.90); MONOCYTES PERCENT AUTO 10.8 % (3.3-12.6); NEUTROPHILS ABSOLUTE AUTO 2.16 K/uL (1.0-7.6); NEUTROPHILS PERCENT AUTO 35.4 % (40.0-78.1); PLATELET COUNT,PLT 265 K/uL (130-375); RED BLOOD CELL COUNT 4.22 M/uL (3.77-5.24); WHITE BLOOD CELL COUNT,WBC 6.1 K/uL (3.2-11.0)
[2025-02-11 17:17] LABS: IMMATURE GRAN ABSOLUTE AUTO 0.01 K/uL (0.00-0.23)
[2025-02-11 17:26] LABS: A/G RATIO 1.3 (1.2-2.2); ALANINE AMINOTRANSFERASE,ALT 32 U/L (12-78); ASPARTATE AMNIOTRANSFERASE,AST 25 U/L (15-37); BILIRUBIN TOTAL 0.6 mg/dL (0.2-1.0); BLOOD UREA NITROGEN,BUN 15 mg/dL (7-18); CARBON DIOXIDE,CO2 28 mmol/L (21-32); CHLORIDE,CL 101 mmol/L (100-108); CREATININE 1.0 mg/dL (0.6-1.0); EST CRCL DRUG DOSING (CG) 40.60 mL/min; ESTIMATED GFR 56 mL/min (>60); GLUCOSE RANDOM 135 mg/dL (74-106); POTASSIUM,K 3.8 mmol/L (3.6-5.2); PROTEIN TOTAL,TP 6.7 g/dL (6.4-8.2); SODIUM,NA 137 mmol/L (140-148)
[2025-02-11] MEDS: Metoprolol Tartrate 5 MG/5 ML SDV IVPUSH ONE (19:35)
== END 2025-02-11 22:07 | disposition home or self-care (01) ==
LOC: JP.ED 16:09
DX: R07.89 Other chest pain (principal); R00.8 Other abnormalities of heart beat; E78.00 Pure hypercholesterolemia, unspecified; I10 Essential (primary) hypertension; E11.9 Type 2 diabetes mellitus without complications; Z90.49 Acquired absence of other specified parts of digestive tract; Z79.82 Long term (current) use of aspirin; Z79.899 Other long term (current) drug therapy; Z79.84 Long term (current) use of oral hypoglycemic drugs
CPT/HCPCS: 36415; 71046; 80053; 84484; 85025; 85379; 86140; 93005; 96374; 99285; J0616